=== PATIENT | female | born 1945 | race Caucasian/White ===

== ENCOUNTER 2018-05-18 11:59 | Outpatient (CLI) | payer MEDICARE ==
[~2018-05-18 11:59] MED LIST: AMLO10TA4 PO; ASPI81TA30 PO; CARV25TA2 PO; GLIM1TAB46 PO; HYDR-4353 PO; LANTUS SUBCUT; LEVO50TA PO; LOSA100T3 PO; PRAV80TA3 PO
[2018-05-18 12:38] LABS: BASOPHILS # (AUTO) 0.1 X10'3 (0-0.2); BASOPHILS % (AUTO) 1.1 % (0-1); EOSINOPHILS # (AUTO) 0.1 X10'3 (0-0.9); EOSINOPHILS % (AUTO) 1.4 % (0-6); HEMATOCRIT 39.6 % (35.0-45.0); HEMOGLOBIN 13.4 g/dl (12.0-16.0); LYMPHOCYTES # (AUTO) 1.5 X10'3 (1.1-4.8); LYMPHOCYTES % (AUTO) 22.4 % (21-51); MEAN CORPUSCULAR HEMOGLOBIN 30.6 PG (27.0-31.0); MEAN CORPUSCULAR HGB CONC 33.8 g/dL (33.0-36.5); MEAN CORPUSCULAR VOLUME 90.6 FL (78-98); MEAN PLATELET VOLUME 10.3 FL (7.4-10.4); MONOCYTES # (AUTO) 0.5 X10'3 (0-0.9); MONOCYTES % (AUTO) 6.9 % (2-12); NEUTROPHILS # (AUTO) 4.6 X10'3 (1.8-7.7); NEUTROPHILS % (AUTO) 68.2 % (42-75); PLATELET COUNT 194 X10'3 (140-440); RED BLOOD COUNT 4.37 X10'6 (4.20-5.60); RED CELL DISTRIBUTION WIDTH 13.7 % (11.5-14.5); WHITE BLOOD COUNT 6.8 X10'3 (4.5-11.0)
[2018-05-18 12:58] LABS: ALBUMIN 3.3 G/DL (3.4-5.0); ANION GAP 12 (8-16); BLOOD UREA NITROGEN 21 MG/DL (7-18); BUN/CREATININE RATIO 25.9 (6.6-38.0); CALCIUM 8.7 MG/DL (8.5-10.1); CHLORIDE 106 MMOL/L (99-107); CREATININE 0.81 MG/DL (0.40-0.90); GLUCOSE 187 MG/DL (70-104); POTASSIUM 4.2 MMOL/L (3.5-5.1); SODIUM 138 MMOL/L (135-145); TOTAL CARBON DIOXIDE 20.1 MMOL/L (24-32); eGFR 70 ML/MIN
[2018-05-18 13:03] LABS: INR 1.7 INR; PARTIAL THROMBOPLASTIN TIME 32 SECONDS (22-32); PROTHROMBIN TIME 17.2 SECONDS (9.0-12.0)
== END 2018-05-18 23:59 | disposition home or self-care (01) ==
LOC: SSTAY O 11:59 → EDSTATUS 05-20 10:30
PROVIDERS: ATTEND Internal Medicine Interventional Cardiology
DX: I10 Essential (primary) hypertension (principal); I48.91 Unspecified atrial fibrillation; E11.9 Type 2 diabetes mellitus without complications; Z79.4 Long term (current) use of insulin; Z87.891 Personal history of nicotine dependence
CPT/HCPCS: 36415; 80048; 85025; 85610; 85730

== ENCOUNTER 2018-06-07 14:55 | Day surgery (SDC) | payer MEDICARE ==
[2018-06-04 11:43] LABS: ALBUMIN 3.4 G/DL (3.4-5.0); ANION GAP 12 (8-16); BLOOD UREA NITROGEN 21 MG/DL (7-18); BUN/CREATININE RATIO 25.9 (6.6-38.0); CALCIUM 8.7 MG/DL (8.5-10.1); CHLORIDE 104 MMOL/L (99-107); CREATININE 0.81 MG/DL (0.40-0.90); GLUCOSE 214 MG/DL (70-104); POTASSIUM 4.3 MMOL/L (3.5-5.1); SODIUM 136 MMOL/L (135-145); TOTAL CARBON DIOXIDE 20.2 MMOL/L (24-32); eGFR 70 ML/MIN
[2018-06-04 11:44] LABS: BASOPHILS # (AUTO) 0.1 X10'3 (0-0.2); BASOPHILS % (AUTO) 0.9 % (0-1); EOSINOPHILS # (AUTO) 0.1 X10'3 (0-0.9); EOSINOPHILS % (AUTO) 1.4 % (0-6); HEMATOCRIT 41.6 % (35.0-45.0); HEMOGLOBIN 13.8 g/dl (12.0-16.0); LYMPHOCYTES # (AUTO) 1.6 X10'3 (1.1-4.8); LYMPHOCYTES % (AUTO) 24.2 % (21-51); MEAN CORPUSCULAR HEMOGLOBIN 30.6 PG (27.0-31.0); MEAN CORPUSCULAR HGB CONC 33.2 g/dL (33.0-36.5); MEAN PLATELET VOLUME 10.5 FL (7.4-10.4); MONOCYTES # (AUTO) 0.5 X10'3 (0-0.9); MONOCYTES % (AUTO) 7.4 % (2-12); NEUTROPHILS # (AUTO) 4.4 X10'3 (1.8-7.7); NEUTROPHILS % (AUTO) 66.1 % (42-75); PLATELET COUNT 180 X10'3 (140-440); RED BLOOD COUNT 4.52 X10'6 (4.20-5.60); RED CELL DISTRIBUTION WIDTH 13.9 % (11.5-14.5); WHITE BLOOD COUNT 6.6 X10'3 (4.5-11.0)
[2018-06-04 11:52] LABS: INR 1.8 INR; PARTIAL THROMBOPLASTIN TIME 32 SECONDS (22-32); PROTHROMBIN TIME 17.5 SECONDS (9.0-12.0)
[2018-06-04 12:48] LABS: LARGE PLATELETS FEW; PLATELET ESTIMATE NORMAL
[~2018-06-07] VITALS: Ht 160 cm; Wt 103.3 kg
[2018-06-07] VITALS (9 sets, daily range): BP systolic 114–165; BP diastolic 58–85
[2018-06-07] MEDS ORDERED: diphenhydrAMINE 25mg capsule PO ONE (15:15)
[2018-06-07] MEDS ORDERED: LORazepam 0.5 MG tablet PO ONE (15:15)
[2018-06-07] MEDS ORDERED: LOSA50TA64 PO (15:38)
[2018-06-07] MEDS ORDERED: COU4T PO (15:38)
[2018-06-07] MEDS ORDERED: GLIM1TAB46 PO (15:38)
[2018-06-07] MEDS ORDERED: INSU100V12 SQ (15:38)
[2018-06-07] MEDS: normal saline 1000ml 1,000 ML IV SCH ×2 (17:49→22:33)
[2018-06-07] MEDS ORDERED: LIDOcaine 1% (10mg/ml)w/preservative injection 20ml MDV ONE (18:05)
[2018-06-07] MEDS ORDERED: iohexol 350MG/ML 100ml bottle IV ONE ×2 (18:05→19:02)
[2018-06-07] MEDS ORDERED: fentaNYL/PF 50MCG/1 ML 2ML syringe ONE (18:31)
[2018-06-07] MEDS ORDERED: midazolam 2 mg/2 ml injection ONE (18:32)
[2018-06-07] MEDS ORDERED: heparin 1,000unit/ml 10ml vial 10 ML ONE (18:54)
[2018-06-07] MEDS ORDERED: ticagrelor 90mg tablet ONE (19:18)
--- NOTE | 2018-06-07 19:30 | NUR ---
Patient arrived on floor via gurney from Cardiac short stay. Transferred using slide board, patient to remain flat for 2 hours per MD order. Post op vitals started, placed on telemetry unit. Patient on NS @ 100, 2L O2 via NC. Oriented to room, serenity accompanied
--- NOTE | 2018-06-07 19:35 | NUR ---
Patient cath site assess small hematoma present, confirm with Juan CORONA, that size was unchanged. will continue to monitor closely
[2018-06-07] MEDS ORDERED: normal saline 1000ml 1,000 ML IV SCH (20:00)
[2018-06-07] MEDS ORDERED: glucagon, human recombinant 1mg kit SUBCUT PRN (21:05)
[2018-06-07] MEDS ORDERED: dextrose ORAL solution 15 GM/59 ML bottle PO PRN ×2 (21:05)
[2018-06-07] MEDS ORDERED: MESSAGE TO PHARMACY PO ONE (21:05)
[2018-06-07] MEDS ORDERED: dextrose 50%-water 50ml dispensing syringe IV PRN ×2 (21:05)
[2018-06-07] MEDS ORDERED: insulin Lispro (HumaLOG) vial - multi-dose SQ SCH (21:05)
--- NOTE | 2018-06-07 22:00 | NUR ---
Assessed cath site, unchanged from previous assessent
[2018-06-07] MEDS ORDERED: nitroGLYCERIN 0.4mg SUBLingual tab SL ONE (22:07)
[2018-06-07] MEDS ORDERED: nitroGLYCERIN 0.4mg SUBLingual tab SL PRN (22:15)
--- NOTE | 2018-06-07 22:18 | NUR ---
Patient experincing chest pressure and shortness of breath, no radiating pain. Pain 4/10. Patient given one 0.4mg sublingual nitroglycerin. Pain decreased to 2/10, shortness of breath resolved. EKG read by Dr Engle, No stemi. Continuing to monitor
--- NOTE | 2018-06-08 02:00 | NUR ---
Assessed cath site, unchanged since last assessment
[2018-06-08 02:15] VITALS: BP 152/61
[2018-06-08 03:00] VITALS: BP 152/61
[2018-06-08] MEDS ORDERED: OXAZEpam 15mg capsule PO PRN (03:55)
[2018-06-08] MEDS ORDERED: ondansetron/PF 4mg/2ml inj IV PRN (03:55)
[2018-06-08] MEDS ORDERED: HYDROcodone/acetaminophen 10/325mg tab PO PRN (03:55)
[2018-06-08] MEDS ORDERED: HYDROcodone/acetaminophen 5mg/325mg tablet PO PRN (03:55)
[2018-06-08] MEDS ORDERED: proCHLORperazine 10 MG/2 ml inj IV PRN (03:55)
--- NOTE | 2018-06-08 06:00 | NUR ---
Patient in room PCU 3023. I have received report from Amaris CORONA and had the opportunity to ask questions and assume patient care.
[2018-06-08 06:24] LABS: HEMOGLOBIN A1C 8.4 % (4.5-6.2)
--- NOTE | 2018-06-08 06:27 | NUR ---
Problems reprioritized. Patient report given, questions answered & plan of care reviewed with Chevy CORONA.
[2018-06-08 06:29] LABS: ALBUMIN 2.9 G/DL (3.4-5.0); ANION GAP 9 (8-16); BLOOD UREA NITROGEN 18 MG/DL (7-18); BUN/CREATININE RATIO 17.3 (6.6-38.0); CALCIUM 8.2 MG/DL (8.5-10.1); CHLORIDE 106 MMOL/L (99-107); CHOL/HDL RATIO 4.3 (0.00-4.99); CHOLESTEROL 152 MG/DL (0-200); CREATININE 1.04 MG/DL (0.40-0.90); GLUCOSE 217 MG/DL (70-104); HDL CHOLESTEROL 35 MG/DL (35-60); LDL CHOLESTEROL 73 MG/DL (50-100); POTASSIUM 3.7 MMOL/L (3.5-5.1); SODIUM 139 MMOL/L (135-145); TOTAL CARBON DIOXIDE 23.7 MMOL/L (24-32); TRIGLYCERIDES 384 MG/DL (20-135); eGFR 52 ML/MIN
[2018-06-08] MEDS ORDERED: ASPI-611 PO (06:40)
[2018-06-08] MEDS ORDERED: TICA90TA PO (06:40)
[2018-06-08] MEDS ORDERED: NITR0.4T51 SL (06:40)
[2018-06-08 07:00] VITALS: BP 171/80
[2018-06-08] MEDS ORDERED: levoTHYROXINE 25mcg tablet PO SCH (07:00)
[2018-06-08 07:20] LABS: BASOPHILS % (AUTO) 0.7 % (0-1); EOSINOPHILS # (AUTO) 0.1 X10'3 (0-0.9); EOSINOPHILS % (AUTO) 1.4 % (0-6); HEMATOCRIT 37.7 % (35.0-45.0); HEMOGLOBIN 12.7 g/dl (12.0-16.0); LYMPHOCYTES # (AUTO) 1.5 X10'3 (1.1-4.8); LYMPHOCYTES % (AUTO) 22.5 % (21-51); MEAN CORPUSCULAR HEMOGLOBIN 30.8 PG (27.0-31.0); MEAN CORPUSCULAR HGB CONC 33.6 g/dL (33.0-36.5); MEAN CORPUSCULAR VOLUME 91.9 FL (78-98); MEAN PLATELET VOLUME 10.2 FL (7.4-10.4); MONOCYTES # (AUTO) 0.6 X10'3 (0-0.9); MONOCYTES % (AUTO) 9.5 % (2-12); NEUTROPHILS # (AUTO) 4.5 X10'3 (1.8-7.7); NEUTROPHILS % (AUTO) 65.9 % (42-75); PLATELET COUNT 178 X10'3 (140-440); RED CELL DISTRIBUTION WIDTH 13.9 % (11.5-14.5); WHITE BLOOD COUNT 6.8 X10'3 (4.5-11.0)
[2018-06-08 07:24] LABS: INR 1.1 INR; PROTHROMBIN TIME 11.1 SECONDS (9.0-12.0)
[2018-06-08] MEDS ORDERED: glimepiride 1 MG tablet PO SCH (08:00)
[2018-06-08] MEDS ORDERED: losartan 50mg tablet PO SCH (08:00)
[2018-06-08] MEDS ORDERED: pravastatin 40mg tablet PO SCH (08:00)
[2018-06-08] MEDS ORDERED: carVEDilol 12.5mg tablet PO SCH (08:00)
[2018-06-08] MEDS ORDERED: aspirin 81mg tab.chew PO ONE (08:00)
[2018-06-08] MEDS ORDERED: ticagrelor 90mg tablet PO SCH (08:00)
--- NOTE | 2018-06-08 10:42 | NUR ---
Pt. discharge. Meds delivered bedside. Groin site looked good. All questions answered for the patient and her son. Pt's tele and PIV removed intact.
--- NOTE | 2018-06-08 10:45 | NUR ---
Pt. also educated on our [facility] and given all contact information
[2018-06-08] MEDS ORDERED: warfarin 1mg tablet PO SCH (21:00)
[2018-06-08] MEDS ORDERED: warfarin 2.5mg tablet PO SCH (21:00)
[2018-06-08] MEDS ORDERED: insulin glargine (Lantus) pen - multi-dose SQ SCH ×2 (21:00)
== END 2018-06-08 12:03 | disposition home or self-care (01) ==
LOC: SSTAY O 14:55 → PCU 3S 19:55 → SSTAY O 06-08 12:03
PROVIDERS: ATTEND Internal Medicine Interventional Cardiology
DX: I25.119 Atherosclerotic heart disease of native coronary artery with unspecified angina pectoris (principal); I10 Essential (primary) hypertension; E78.5 Hyperlipidemia, unspecified; E11.9 Type 2 diabetes mellitus without complications; I48.91 Unspecified atrial fibrillation; E03.9 Hypothyroidism, unspecified; Z79.899 Other long term (current) drug therapy
CPT/HCPCS: 36415; 80048; 80061; 82948; 83036; 85025; 85610; 85730; 93005; 93458; 99152; 99153; A6257; C1874; C9600; J1644; J2001; J2250; J3010; J7030; Q0163; Q9967; A4620; C1760; C1769; G0378; J1815

== ENCOUNTER 2018-09-07 11:15 | Emergency (ER) | payer MEDICARE ==
[~2018-09-07] VITALS: Ht 157.5 cm; Wt 106.0 kg
[~2018-09-07 11:15] MED LIST changes: -AMLO10TA4 PO; -ASPI81TA30 PO; +COU4T PO; -HYDR-4353 PO; +INSU100V12 SQ; -LANTUS SUBCUT; -LOSA100T3 PO; +LOSA50TA64 PO; +NITR0.4T51 SL; +TICA90TA PO
[2018-09-07 11:51] LABS: BASOPHILS # (AUTO) 0.1 X10'3 (0-0.2); BASOPHILS % (AUTO) 1.3 % (0-1); EOSINOPHILS # (AUTO) 0.1 X10'3 (0-0.9); EOSINOPHILS % (AUTO) 1.1 % (0-6); HEMATOCRIT 41.9 % (35.0-45.0); LYMPHOCYTES # (AUTO) 2.2 X10'3 (1.1-4.8); LYMPHOCYTES % (AUTO) 29.7 % (21-51); MEAN CORPUSCULAR HEMOGLOBIN 30.2 PG (27.0-31.0); MEAN CORPUSCULAR HGB CONC 33.5 g/dL (33.0-36.5); MEAN CORPUSCULAR VOLUME 90.4 FL (78-98); MEAN PLATELET VOLUME 9.9 FL (7.4-10.4); MONOCYTES # (AUTO) 0.7 X10'3 (0-0.9); MONOCYTES % (AUTO) 9.6 % (2-12); NEUTROPHILS # (AUTO) 4.3 X10'3 (1.8-7.7); NEUTROPHILS % (AUTO) 58.3 % (42-75); PLATELET COUNT 207 X10'3 (140-440); RED BLOOD COUNT 4.64 X10'6 (4.20-5.60); RED CELL DISTRIBUTION WIDTH 13.7 % (11.5-14.5); WHITE BLOOD COUNT 7.4 X10'3 (4.5-11.0)
[2018-09-07] MEDS ORDERED: ASPI-1265 PO (11:52)
[2018-09-07 12:05] LABS: PARTIAL THROMBOPLASTIN TIME 37 SECONDS (22-32)
[2018-09-07 12:08] LABS: ALANINE AMINOTRANSFERASE 14 U/L (12-78); ALBUMIN 3.7 G/DL (3.4-5.0); ALBUMIN/GLOBULIN RATIO 0.9 (1.1-1.5); ALKALINE PHOSPHATASE 86 IU/L (46-116); ANION GAP 15 (8-16); ASPARTATE AMINO TRANSFERASE 11 U/L (10-37); BILIRUBIN,TOTAL 0.4 MG/DL (0.1-1.0); BLOOD UREA NITROGEN 15 MG/DL (7-18); BUN/CREATININE RATIO 17.9 (6.6-38.0); CALCIUM 9.1 MG/DL (8.5-10.1); CHLORIDE 103 MMOL/L (99-107); CREATININE 0.84 MG/DL (0.40-0.90); GLUCOSE 200 MG/DL (70-104); SODIUM 138 MMOL/L (135-145); TOTAL CARBON DIOXIDE 20.2 MMOL/L (24-32); TOTAL PROTEIN 7.6 G/DL (6.4-8.2); eGFR 67 ML/MIN
[2018-09-07] MEDS ORDERED: nitroGLYCERIN-Tridil 50MG/D5W 250 ML IV PRN ×2 (12:10)
[2018-09-07] MEDS ORDERED: NITR0.4T48 SL (12:26)
--- NOTE | 2018-09-07 12:30 | NUR ---
Patient assisted to the bedside commode. Patient had 2 pads saturated.
[2018-09-07] MEDS ORDERED: WARF1TAB PO ×2 (12:36)
[2018-09-07 13:54] LABS: D-DIMER < 0.19 MG/L FEU (0-0.50)
[2018-09-07 14:20] LABS: ABG BASE EXCESS 1.3 mmol/L (-2.0-3.0); ABG HCO3 18.9 mmol/L (22.0-26.0); ABG OXYGEN SATURATION 97.4 % (95-98); ABG PCO2 (T) 16.9 mmHg (32.0-45.0); ABG PH (T) 7.667 (7.350-7.450); ALLEN'S TEST Positive; FCOHb 0.4 % (0.5-1.5); FMetHb 0.3 % (0.3-1.12); FO2Hb 96.7 % (94-100); TOTAL HEMOGLOBIN 14.1 G/dl (12.0-16.0)
--- NOTE | 2018-09-07 14:20 | NUR ---
Dr. Diane notified of patient feeling dizzy. Orders recieved.
[2018-09-07] MEDS ORDERED: LORazepam 2 mg/ml vial IV ONE (14:25)
--- NOTE | 2018-09-07 15:03 | NUR ---
Patient is feeling much better since receiving the ativan
[2018-09-07] MEDS ORDERED: LORA0.5T PO (15:14)
[2018-09-07 15:26] VITALS: BP 137/84
== END 2018-09-07 16:24 | disposition home or self-care (01) ==
LOC: ER 11:17
DX: R06.02 Shortness of breath (principal); F41.9 Anxiety disorder, unspecified; I48.91 Unspecified atrial fibrillation; I10 Essential (primary) hypertension; E11.9 Type 2 diabetes mellitus without complications; Z79.82 Long term (current) use of aspirin; Z79.899 Other long term (current) drug therapy; Z79.01 Long term (current) use of anticoagulants; Z79.4 Long term (current) use of insulin
CPT/HCPCS: 36415; 36600; 71045; 80053; 82803; 83880; 84484; 85018; 85025; 85379; 85610; 85730; 93005; 96365; 96375; 99284; J2060; J3490

== ENCOUNTER 2019-08-31 10:32 | Outpatient (CLI) | payer MEDICARE ==
[~2019-08-31] VITALS: Ht 157.5 cm; Wt 106.6 kg
[~2019-08-31 10:32] MED LIST changes: +AMA1T PO; -COU4T PO; -GLIM1TAB46 PO; +NITR0.4T48 SL; -NITR0.4T51 SL; -TICA90TA PO; +WARF1TAB PO
[2019-08-31] MEDS ORDERED: albuterol 2.5 MG/3 ML nebule NEB PRN (11:00)
== END 2019-08-31 23:59 | disposition home or self-care (01) ==
LOC: RT 10:32
PROVIDERS: ATTEND Family Medicine
DX: R06.02 Shortness of breath (principal); J98.8 Other specified respiratory disorders
CPT/HCPCS: 71046; 94060; 94760